=== PATIENT | male | born 1950 | race African-American/Black ===

== ENCOUNTER 2020-07-27 13:28 | Emergency (ER) | payer BC, OTHER ==
[~2020-07-27] VITALS: Ht 198.1 cm; Wt 104.3 kg
[2020-07-27 13:40] VITALS: BP 142/94
[2020-07-27] MEDS ORDERED: TYLENOL325 MG ORAL (13:53)
--- NOTE | 2020-07-27 13:53 | Emergency Room Report ---
History of Present Illness General Chief Complaint: Lower Extremity Injury Source: Patient Present Illness HPI 70-year-old male presents with left foot pain that started 4 days ago patient states he dropped an object on his left foot he notes a sharp pain on the fourth fifth metatarsal, endorses pain aggravated with touch alleviated by rest severity is mild, intermittent Allergies: Coded Allergies: No Known Allergies (Unverified , 07/27/20) COVID-19 Screening Contact w/high risk pt: No Experienced COVID-19 symptoms?: No COVID-19 Testing performed PLANT PATHOLOGIST: No Patient History Past Medical History: see triage record Reviewed Nursing Documentation: PMH: Agreed; PSxH: Agreed Nursing Documentation-PMH Past Medical History: No Stated History Review of Systems All Other Systems: negative except mentioned in HPI Physical Exam Vital Signs Date Time Temp Pulse Resp B/P (MAP) Pulse Ox O2 Delivery O2 Flow Rate FiO2 07/27/20 13:40 97.9 76 20 142/94 (110) 95 Room Air General Appearance: well appearing, no apparent distress Head: normocephalic, atraumatic ENT: hearing grossly normal, normal voice Neck: full range of motion, supple Respiratory: no respiratory distress, speaking full sentences Musculoskeletal: other - Left lower extremity: 2+ PT DP fires EHL 5 5 plantar dorsiflexion at the ankle, patient with tenderness around 4/5 metatarsal area Neurologic: alert, normal gait Psychiatric: mood/affect normal Skin: no rash Medical Decision Making Diagnostic Impression: Primary Impression: Foot fracture, left Qualified Codes: S92.902A - Unspecified fracture of left foot, initial encounter for closed fracture ER Course 70-year-old male presents with fourth fifth metatarsal fracture at the base, x- ray confirmatory Patient placed in a walking boot, referral to Ortho Anticipatory care return precautions discussed follow-up with PCP Other X-Ray Diagnostic Results Other X-Ray Diagnostic Results : X-Ray ordered: left foot # of Views/Limited Vs Complete: 3 View Indication: Pain EP Interpretation: Yes Interpretation: other - Fracture fourth fifth metatarsal area Impression: Other - Fracture Electronically Signed by: Mahad Cazares MD Last Vital Signs Date Time Temp Pulse Resp B/P (MAP) Pulse Ox O2 Delivery O2 Flow Rate FiO2 07/27/20 13:40 97.9 76 20 142/94 (110) 95 Room Air Disposition: HOME, SELF-CARE Condition: Stable Scripts Acetaminophen (Tylenol) 325 Mg Tablet 650 MG ORAL Q6H PRN for Prn Pain/Headache/Temp > 101, #30 TAB 0 Refills Prov: Mahad Cazares MD 07/27/20 Referrals: [facility] Patient Instructions: Metatarsal Fracture Additional Instructions: The patient was provided with discharge instructions, notified to follow-up with a primary care doctor and or specialist in the next 24-48 hours, and to return to the ED if they have worsening of their symptoms. Please note that this report is being documented using [employer] technology. This can lead to erroneous entry secondary to incorrect interpretation by the dictating instrument. Mahad Cazares MD Jul 27, 2020 13:53
--- NOTE | 2020-07-27 14:15 | Diagnostic Imaging Report ---
INDICATION: Foot pain TECHNIQUE: XRAY Foot Complete L Multiple views of the left foot were obtained COMPARISON: None FINDINGS: There is no acute fracture or dislocation. Joint spaces are maintained. Accessory ossicle is noted adjacent to the cuboid. No acute soft tissue abnormality. Vascular calcifications noted. IMPRESSION: No acute fracture or dislocation.
== END 2020-07-27 14:00 | disposition home or self-care (01) ==
LOC: EMR 13:56
DX: S92.902A Unspecified fracture of left foot, initial encounter for closed fracture (principal); W20.8XXA Other cause of strike by thrown, projected or falling object, initial encounter; Y92.9 Unspecified place or not applicable
CPT/HCPCS: 99283